=== PATIENT | female | born 1940 | race Caucasian/White ===

== ENCOUNTER 2019-09-05 12:12 | Inpatient (IN) | payer MEDICARE, BC ==
[2019-09-05] MEDS: SODIUM CHLORIDE 0.9% 1,000 ML IV STA ×2 (12:33→18:11)
--- NOTE | 2019-09-05 12:33 | ED ---
General Adult HPI - General Chief complaint: Arrhythmia/Palpitations Stated complaint: Bradycardia Time Seen by Provider: 09/05/19 12:16 Source: patient, EMS, RN notes reviewed Mode of arrival: EMS Limitations: no limitations - History of Present Illness Initial comments: Patient is a pleasant 78-year-old female presenting to the emergency department with fatigue and concerns regarding blood pressure. Patient states her blood pressure has been intermittently low over the past couple of days. Patient states that is been anywhere from the 40s to the 80s. Patient is unclear what her heart rate was. Patient states usually her blood pressure is normal. Patient has been generally fatigued. Patient has been sleeping more than normal. No chest pain. Patient has some discomfort of her upper back however is unclear if this is chronic or not. No dyspnea. No isolated area of weakness or confusion. Patient is on calcium channel gm as well as beta gm. - Related Data Allergies Allergy/AdvReac Type Severity Reaction Status Date / Time No Known Allergies Allergy Verified 09/05/19 12:26 Review of Systems ROS Statement: Those systems with pertinent positive or pertinent negative responses have been documented in the HPI. ROS Other: All systems not noted in ROS Statement are negative. Constitutional: Denies: fever Eyes: Denies: eye pain ENT: Denies: ear pain Respiratory: Denies: cough, dyspnea Cardiovascular: Denies: chest pain Endocrine: Reports: fatigue Gastrointestinal: Denies: abdominal pain Genitourinary: Denies: dysuria Musculoskeletal: Reports: as per HPI Skin: Denies: rash Neurological: Denies: headache Past Medical History Past Medical History: Heart Failure, Diabetes Mellitus, GERD/Reflux, Hyperlipidemia, Hypertension Additional Past Medical History / Comment(s): neuropathy,parkinsons History of Any Multi-Drug Resistant Organisms: None Reported Past Surgical History: Cholecystectomy Past Psychological History: Depression Smoking Status: Never smoker Past Alcohol Use History: None Reported Past Drug Use History: None Reported General Exam Limitations: no limitations General appearance: alert, in no apparent distress Head exam: Present: normocephalic Eye exam: Present: normal appearance Neck exam: Present: normal inspection Respiratory exam: Present: normal lung sounds bilaterally Cardiovascular Exam: Present: bradycardia Expanded Peripheral pulses: 2+: Radial (R), Radial (L), Dorsalis Pedis (R), Dorsalis Pedis (L) GI/Abdominal exam: Present: soft. Absent: tenderness Extremities exam: Present: normal inspection Back exam: Present: normal inspection Neurological exam: Present: alert, oriented X3. Absent: motor sensory deficit Psychiatric exam: Present: normal affect, normal mood Skin exam: Present: normal color Course Vital Signs 09/05/19 09/05/19 09/05/19 12:13 12:38 12:46 Temperature 98.3 F Pulse Rate 36 L 32 L 32 L Respiratory 18 20 18 Rate Blood Pressure 98/75 77/51 72/28 O2 Sat by Pulse 96 99 98 Oximetry 09/05/19 09/05/19 09/05/19 12:48 12:51 12:57 Temperature Pulse Rate 45 L 33 L 32 L Respiratory 18 18 18 Rate Blood Pressure 66/52 76/39 70/30 O2 Sat by Pulse 98 97 97 Oximetry 09/05/19 09/05/19 09/05/19 13:01 13:09 13:12 Temperature Pulse Rate 37 L 32 L 39 L Respiratory 20 18 Rate Blood Pressure 72/40 85/48 O2 Sat by Pulse 97 97 Oximetry 09/05/19 09/05/19 09/05/19 13:15 13:20 13:23 Temperature 97.5 F L Pulse Rate 68 38 L 47 L Respiratory 17 Rate Blood Pressure 116/96 101/64 O2 Sat by Pulse 99 Oximetry 09/05/19 09/05/19 09/05/19 13:32 13:40 13:43 Temperature Pulse Rate 63 84 Respiratory 18 18 Rate Blood Pressure 83/49 96/57 123/74 O2 Sat by Pulse 99 99 Oximetry 09/05/19 13:59 Temperature Pulse Rate 84 Respiratory 18 Rate Blood Pressure 126/68 O2 Sat by Pulse 99 Oximetry - Reevaluation(s) Reevaluation #1: 09/05/19 13:00 Case was discussed with Dr. Abdalla who does recommend adding calcium and glucagon. He states also consider dopamine or norepinephrine. 09/05/19 14:24 Patient reevaluated multiple times. Patient blood pressure and heart rate are significantly improved. Case also discussed with Dr. Figueroa, who will admit co humberto for hospital call. He does request repeat Bmp EKG Findings - EKG Comments: EKG Findings:: Sinus bradycardia 34. TX 202. QRS 78. QT 486. QTc 365. Left axis. Inferior Q waves. No acute ST change. EKG #2 shows sinus bradycardia 35. TX 184. QRS 78. QT 44. QTC 369. Left axis. Inferior Q waves. No acute ST change Medical Decision Making - Lab Data Result diagrams: 09/05/19 12:29 09/05/19 12: Lab Results 09/05/19 09/05/19 09/05/19 Range/Units 12:29 12: 12:29 WBC 6.8 (3.8-10.6) k/uL RBC 4.29 (3.80-5.40) m/uL Hgb 11.5 (11.4-16.0) gm/dL Hct 37.4 (34.0-46.0) % MCV 87.0 (80.0-100.0) fL MCH 26.7 (25.0-35.0) pg MCHC 30.7 L (31.0-37.0) g/dL RDW 15.9 H (11.5-15.5) % Plt Count 205 (150-450) k/uL Neutrophils % 68 % Lymphocytes % 20 % Monocytes % 5 % Eosinophils % 4 % Basophils % 1 % Neutrophils # 4.6 (1.3-7.7) k/uL Lymphocytes # 1.4 (1.0-4.8) k/uL Monocytes # 0.3 (0-1.0) k/uL Eosinophils # 0.3 (0-0.7) k/uL Basophils # 0.1 (0-0.2) k/uL Hypochromasia Marked PT 9.6 (9.0-12.0) sec INR 0.9 (<1.2) APTT 21.6 L (22.0-30.0) sec Sodium 131 L (137-145) mmol/L Potassium 7.3 H* (3.5-5.1) mmol/L Chloride 106 (98-107) mmol/L Carbon Dioxide 17 L (22-30) mmol/L Anion Gap 8 mmol/L BUN 74 H (7-17) mg/dL Creatinine 1.78 H (0.52-1.04) mg/dL Est GFR (CKD-EPI)AfAm 31 (>60 ml/min/1.73 sqM) Est GFR (CKD-EPI)NonAf 27 (>60 ml/min/1.73 sqM) Glucose 240 H (74-99) mg/dL Calcium 8.6 (8.4-10.2) mg/dL Magnesium 2.3 (1.6-2.3) mg/dL Total Bilirubin 0.6 (0.2-1.3) mg/dL AST 28 (14-36) U/L ALT <6 (4-34) U/L Alkaline Phosphatase 76 (38-126) U/L Troponin I (0.000-0.034) ng/mL Total Protein 6.7 (6.3-8.2) g/dL Albumin 3.4 L (3.5-5.0) g/dL TSH 3.500 (0.465-4.680) mIU/L Free T4 0.81 (0.78-2.19) ng/dL Free T3 pg/mL 3.6 (2.8-5.3) pg/ml Coronavirus (PCR) (Not Detectd) 09/05/19 09/05/19 Range/Units 12:29 12:33 WBC (3.8-10.6) k/uL RBC (3.80-5.40) m/uL Hgb (11.4-16.0) gm/dL Hct (34.0-46.0) % MCV (80.0-100.0) fL MCH (25.0-35.0) pg MCHC (31.0-37.0) g/dL RDW (11.5-15.5) % Plt Count (150-450) k/uL Neutrophils % % Lymphocytes % % Monocytes % % Eosinophils % % Basophils % % Neutrophils # (1.3-7.7) k/uL Lymphocytes # (1.0-4.8) k/uL Monocytes # (0-1.0) k/uL Eosinophils # (0-0.7) k/uL Basophils # (0-0.2) k/uL Hypochromasia PT (9.0-12.0) sec INR (<1.2) APTT (22.0-30.0) sec Sodium (137-145) mmol/L Potassium (3.5-5.1) mmol/L Chloride (98-107) mmol/L Carbon Dioxide (22-30) mmol/L Anion Gap mmol/L BUN (7-17) mg/dL Creatinine (0.52-1.04) mg/dL Est GFR (CKD-EPI)AfAm (>60 ml/min/1.73 sqM) Est GFR (CKD-EPI)NonAf (>60 ml/min/1.73 sqM) Glucose (74-99) mg/dL Calcium (8.4-10.2) mg/dL Magnesium (1.6-2.3) mg/dL Total Bilirubin (0.2-1.3) mg/dL AST (14-36) U/L ALT (4-34) U/L Alkaline Phosphatase (38-126) U/L Troponin I <0.012 (0.000-0.034) ng/mL Total Protein (6.3-8.2) g/dL Albumin (3.5-5.0) g/dL TSH (0.465-4.680) mIU/L Free T4 (0.78-2.19) ng/dL Free T3 pg/mL (2.8-5.3) pg/ml Coronavirus (PCR) Not Detected (Not Detectd) - Radiology Data Radiology results: image reviewed (Chest x-ray shows limited study, possible patchy bilateral infiltrates or CHF) Critical Care Time Critical Care Time: Yes Total Critical Care Time: 35 Disposition Clinical Impression: Bradycardia, Hyperkalemia, Hypotension, Acute renal failure (ARF) Disposition: ADMITTED IP TO THIS [facility] Condition: Serious Is patient prescribed a controlled substance at d/c from ED?: No Referrals: Teofilo Maharaj MD [Primary Care Provider] - 1-2 days Decision Time: 14:27
[2019-09-05] MEDS ORDERED: ATROPINE SULFATE 0.1 MG/ML 10ML SYRINGE IV STA ×2 (12:41→12:52)
[2019-09-05] MEDS ORDERED: SODIUM CHLORIDE 0.9% 500 ML 500 ML IV STA (12:42)
[2019-09-05 12:50] LABS: ALT <6 U/L (4-34); AST 28 U/L (14-36); African American GFR (CKD) 31 (>60 ml/min/1.73 sqM); Albumin 3.4 g/dL (3.5-5.0); Alkaline Phosphatase 76 U/L (38-126); Anion Gap 8 mmol/L; Blood Urea Nitrogen 74 mg/dL (7-17); Calcium 8.6 mg/dL (8.4-10.2); Carbon Dioxide 17 mmol/L (22-30); Chloride 106 mmol/L (98-107); Glucose 240 mg/dL (74-99); Magnesium 2.3 mg/dL (1.6-2.3); Non-African American GFR(CKD) 27 (>60 ml/min/1.73 sqM); Sodium 131 mmol/L (137-145); Total Bilirubin 0.6 mg/dL (0.2-1.3); Total Protein 6.7 g/dL (6.3-8.2)
[2019-09-05 12:54] LABS: Basophils # (A) 0.1 k/uL (0-0.2); Basophils % (A) 1 %; Eosinophils # (A) 0.3 k/uL (0-0.7); Eosinophils % (A) 4 %; HCT 37.4 % (34.0-46.0); HGB 11.5 gm/dL (11.4-16.0); Hypochromasia Marked; Lymphocytes # (A) 1.4 k/uL (1.0-4.8); Lymphocytes % (A) 20 %; MCH 26.7 pg (25.0-35.0); MCHC 30.7 g/dL (31.0-37.0); Mean Platelet Volume 7.2; Monocytes # (A) 0.3 k/uL (0-1.0); Monocytes % (A) 5 %; Neutrophils # (A) 4.6 k/uL (1.3-7.7); Neutrophils % (A) 68 %; Platelet Count 205 k/uL (150-450); RBC 4.29 m/uL (3.80-5.40); RDW 15.9 % (11.5-15.5); WBC 6.8 k/uL (3.8-10.6)
[2019-09-05 12:57] LABS: INR 0.9 (<1.2); Prothrombin Time 9.6 sec (9.0-12.0)
[2019-09-05 12:58] LABS: Partial Thromboplastin Time 21.6 sec (22.0-30.0)
[2019-09-05] MEDS ORDERED: CALCIUM CHLORIDE 100 MG/ML 10 ML SYRINGE IVP STA (12:59)
[2019-09-05] MEDS ORDERED: GLUCAGON 1 MG/ML VIAL IVP STA (12:59)
[2019-09-05 13:00] LABS: Potassium 7.3 mmol/L (3.5-5.1)
[2019-09-05] MEDS ORDERED: SODIUM BICARB 8.4% 50 ML SYR (1 MEQ/ML) IV ONE (13:01)
[2019-09-05] MEDS ORDERED: INSULIN REGULAR 100 UNIT/ML VIAL IV ONE (13:01)
[2019-09-05] MEDS ORDERED: ALBUTEROL NEB (CONC) 2.5 MG/0.5 ML INHALATION ONE (13:01)
[2019-09-05] MEDS ORDERED: DEXTROSE 50% SYRINGE 50 ML IVP ONE (13:01)
[2019-09-05] MEDS ORDERED: SODIUM POLYSTYRENE SULFONATE 15 GM/60 ML BOTTLE PO ONE (13:01)
[2019-09-05 13:07] LABS: T4, Free (Free Thyroxine) 0.81 ng/dL (0.78-2.19)
[2019-09-05] MEDS ORDERED: SODIUM CHLORIDE 0.9% 1,000 ML IV STA (13:21)
--- NOTE | 2019-09-05 13:51 | XR ---
EXAMINATION TYPE: XR chest 1V portable DATE OF EXAM: 09/05/2019 HISTORY: bradycardia hypotensive. REFERENCE: NONE. FINDINGS: The heart is mildly enlarged. There is patchy, bilateral infiltrates. There is blunting of the left CP angle and I cannot exclude a small effusion. There is mild vascular congestion. There is subtle interstitial change and I could not exclude some degree of pulmonary edema. IMPRESSION: SUBOPTIMAL EXAMINATION DEMONSTRATING PATCHY, BILATERAL INFILTRATES WELL SUBTLE CHANGES OF TYREE ESTIVE HEART FAILURE.
[2019-09-05] MEDS ORDERED: NALOXONE 0.4 MG/ML 1 ML VIAL IV PRN (14:21)
[2019-09-05 15:27] LABS: Calcium 9.4 mg/dL (8.4-10.2); Potassium 5.7 mmol/L (3.5-5.1)
[2019-09-05] MEDS ORDERED: BENZOCAINE/MENTHOL LOZENG 1 EACH LOZENGE MUCOUS MEM STA (15:48)
[2019-09-05] MEDS ORDERED: ONDANSETRON 4 MG/2 ML VIAL IVP PRN (16:40)
[2019-09-05] MEDS ORDERED: SODIUM CHLORIDE 0.9% 500 ML 500 ML IV ONE ×2 (16:40→19:54)
--- NOTE | 2019-09-05 16:40 | P.HPIM ---
History of Present Illness H&P Date: 09/05/19 Chief Complaint: Hypotension Patient is a 78-year-old female with a past medical history of high blood pressure, fibromyalgia, neuropathy, and parkinsonian syndrome who initially was brought into the ER via EMS secondary to low blood pressures. She received 1 dose of atropine via EMS, 2 doses of atropine in the ER secondary to bradycardia with hypotension, and a dose of glucagon. Initial laboratory analysis showed an elevated potassium level at 7.3 and acute kidney injury. She received Kayexalate, insulin, glucose, bicarb, and potassium. Repeat labs showed a potassium of 5.7. Her hypotension improved and she was admitted for further monitoring. Patient seen and examined at bedside. She is very confused. I attempted to reach her daughter who is numbers in the chart with no answer. She reports that her blood pressure was low today down to the 40s at home and they were unable to get it out. She is unsure which of her medications are new. She is unable to tell me what she takes other than the pill bottles that are at bedside. She denies any nausea, vomiting, diarrhea, constipation, or dysuria. She denies any chest pain or shortness of breath. She denies any lightheadedness, dizziness, or presyncope. She is just able to tell me that she feels "awful". Review of Systems Pertinent positives and negatives as discussed in HPI, a complete review of systems was performed and all other systems are negative. Past Medical History Past Medical History: Heart Failure, Diabetes Mellitus, GERD/Reflux, Hyperlipidemia, Hypertension Additional Past Medical History / Comment(s): neuropathy,parkinsons, fibromyalgia, osteoarthritis History of Any Multi-Drug Resistant Organisms: None Reported Past Surgical History: Cholecystectomy Past Psychological History: Depression Smoking Status: Never smoker Past Alcohol Use History: None Reported Past Drug Use History: None Reported Additional History: Lives with her - Past Family History Mother Family Medical History: Unable to Obtain (Due to altered mentation) Medications and Allergies Home Medications Medication Instructions Recorded Confirmed Type Canagliflozin [Invokana] 100 mg PO DAILY 09/05/19 09/05/19 History Carbidopa-Levodopa 25-100 mg 1 tab PO TID 09/05/19 09/05/19 History [Sinemet 25-100] Furosemide [Lasix] 20 mg PO BID 09/05/19 09/05/19 History Gabapentin [Neurontin] 800 mg PO TID 09/05/19 09/05/19 History Insulin Detemir [Levemir Flextouch] See Protocol SQ BID 09/05/19 09/05/19 History Isosorbide Dinitrate 30 mg PO DAILY 09/05/19 09/05/19 History Lisinopril [Zestril] 10 mg PO BID 09/05/19 09/05/19 History Magnesium 500 mg PO DAILY 09/05/19 09/05/19 History Meloxicam 7.5 mg PO BID PRN 09/05/19 09/05/19 History Metoprolol Succinate [Toprol XL] 50 mg PO DAILY 09/05/19 09/05/19 History NIFEdipine [Procardia XL] 60 mg PO DAILY 09/05/19 09/05/19 History Omeprazole 20 mg PO DAILY 09/05/19 09/05/19 History Oxybutynin Chloride 5 mg PO BID 09/05/19 09/05/19 History Saliva Stimulant Agents Comb.3 2 spray MUCOUS MEM Q4H PRN 09/05/19 09/05/19 His tory [Biotene Moisturizing Mouth] Sertraline [Zoloft] 50 mg PO DAILY 09/05/19 09/05/19 History Simvastatin [Zocor] 20 mg PO DAILY 09/05/19 09/05/19 History Spironolactone 25 mg PO DAILY 09/05/19 09/05/19 History cloNIDine HCL [Catapres] 0.2 mg PO BID 09/05/19 09/05/19 History hydrALAZINE HCL 50 mg PO TID 09/05/19 09/05/19 History Allergies Allergy/AdvReac Type Severity Reaction Status Date / Time No Known Allergies Allergy Verified 09/05/19 15:26 Physical Exam Osteopathic Statement: *. No significant issues noted on an osteopathic structural exam other than those noted in the History and Physical/Consult. Vitals: Vital Signs Temp Pulse Resp BP Pulse Ox 09/05/19 15:00 97.5 F L 73 18 111/54 96 09/05/19 13:59 84 18 126/68 99 09/05/19 13:43 84 18 123/74 99 09/05/19 13:40 96/57 09/05/19 13:32 63 18 83/49 99 09/05/19 13:23 47 L 09/05/19 13:20 97.5 F L 38 L 17 101/64 99 09/05/19 13:15 68 116/96 09/05/19 13:12 39 L 09/05/19 13:09 32 L 18 85/48 97 09/05/19 13:01 37 L 20 72/40 97 09/05/19 12:57 32 L 18 70/30 97 09/05/19 12:51 33 L 18 76/39 97 09/05/19 12:48 45 L 18 66/52 98 09/05/19 12:46 32 L 18 72/28 98 09/05/19 12:38 32 L 20 77/51 99 09/05/19 12:13 98.3 F 36 L 18 98/75 96 Intake and Output 09/05/19 09/05/19 09/05/19 06:59 14:59 22:59 Other: Weight 77.111 kg General: Ill-appearing, moderate distress, appears at stated age, Derm: no unusual rashes/lesions no unusual ecchymoses, warm, dry Head: atraumatic, normocephalic, symmetric Eyes: EOMI, no lid lag, anicteric sclera, pupils equal round reactive to light ENT: Nose and ears atraumatic, no thrush, no pharyngeal erythema Neck: No thyromegaly, no cervical lymphadenopathy, trachea midline, supple Mouth: no lip lesion, mucus membranes dry, poor dentition Cardiovascular: S1S2 reg, no murmur, positive posterior tibial pulse bilateral, no edema, capillary refill less than 2 seconds Lungs: Increased breath sounds bilateral, no rhonchi, no rales , no accessory muscle use Abdominal: soft, nontender to palpation, no guarding, no appreciable organomegaly, normal bowel sounds Ext: no gross muscle atrophy, muscle strength 5 out of 5 in all 4 extremities grossly, no contractures, Neuro: CN II-XI grossly intact, light touch intact all 4 extremities, nose poor, Psych: Alert, into to self but not situation, flat affect Results CBC & Chem 7: 09/05/19 12:29 09/05/19 14:50 Labs: Abnormal Lab Results - Last 24 Hours (Table) 09/05/19 09/05/19 09/05/19 Range/Units 12:29 12:29 12:29 MCHC 30.7 L (31.0-37.0) g/dL RDW 15.9 H (11.5-15.5) % APTT 21.6 L (22.0-30.0) sec Sodium 131 L (137-145) mmol/L Potassium 7.3 H* (3.5-5.1) mmol/L Chloride (98-107) mmol/L Carbon Dioxide 17 L (22-30) mmol/L BUN 74 H (7-17) mg/dL Creatinine 1.78 H (0.52-1.04) mg/dL Glucose 240 H (74-99) mg/dL Albumin 3.4 L (3.5-5.0) g/dL 09/05/19 Range/Units 14:50 MCHC (31.0-37.0) g/dL RDW (11.5-15.5) % APTT (22.0-30.0) sec Sodium 134 L (137-145) mmol/L Potassium 5.7 H (3.5-5.1) mmol/L Chloride 108 H (98-107) mmol/L Carbon Dioxide 17 L (22-30) mmol/L BUN 69 H (7-17) mg/dL Creatinine 1.82 H (0.52-1.04) mg/dL Glucose 283 H (74-99) mg/dL Albumin (3.5-5.0) g/dL Chest x-ray: report reviewed Thrombosis Risk Factor Assmnt - DVT/VTE Prophylaxis DVT/VTE Prophylaxis: Pharmacologic Prophylaxis ordered Assessment and Plan Assessment: Symptomatic bradycardia - Status post atropine and glucagon -Telemetry -Echocardiogram -Cardiology consult -Hold metoprolol, Procardia, and Catapres Acute kidney injury with hyperkalemia and non-anion gap metabolic acidosis -Unknown baseline creatinine -Hold lisinopril, Aldactone, Invokana,, meloxicam -Gentle IV fluids -Repeat creatinine in a.m. -Repeat potassium in 4 hours -Status post insulin, glucose, bicarb, calcium, and Kayexalate Congestive heart failure, unknown type -Appears to be dehydrated at this point in time -Hold diuretics, lisinopril, and metoprolol -careful fluid management -Echo in a.m. Diabetes mellitus type 2 -Hold invokana, hold levemir - A1C pending - SSI - Follow BS Hyponatremia -Suspect secondary dehydration -Follow sodium levels -Hold diuretics Hypotension likely secondary to medication use -Hold all antihypertensive medications -IV fluids -Follow blood pressures Morbid obesity -BMI 33.2 -Structured outpatient weight loss Fibromyalgia -Dover as needed -Hold Mobic -Supportive care Parkinson's disease -Fall precautions -Carbidopa- levodopa Chronic: Dyslipidemia GERD Neuropathy Urinary frequency The patient is admitted with an anticipated greater than 2 midnight stay for evaluation of symptomatic bradycardia. Surrogate decision-maker: CODE STATUS: Default, attempted to call daughter was listed on chart twice, 's number not available DVT prophylaxis: Heparin Discussed with: Patient, nursing, ED physician Anticipated discharge date: 1-[address]: home A total of 75 minutes was spent on the care of this complex patient more than 50% of the time was spent in counseling and care coordination.
[2019-09-05 17:55] LABS: Glucose,Whole Blood 227 mg/dL (75-99)
[2019-09-05] MEDS: INSULIN ASPART (NovoLOG) 100 UNIT/ML VIAL SQ SCH (18:10)
[2019-09-05] MEDS: SODIUM CHLORIDE 0.9% 1,000 ML IV SCH (18:15)
[2019-09-05 19:21] LABS: Calcium 9.5 mg/dL (8.4-10.2)
[2019-09-05 19:26] LABS: Potassium 6.1 mmol/L (3.5-5.1)
[2019-09-05] MEDS ORDERED: SODIUM BICARB 8.4% 50 ML SYR (1 MEQ/ML) IV STA (20:05)
[2019-09-05] MEDS ORDERED: FUROSEMIDE 10 MG/ML 4 ML VIAL IV STA (20:10)
[2019-09-05] MEDS: MELATONIN 3 MG TABLET PO PRN (20:59)
[2019-09-05] MEDS: HYDROcodone/APAP 5-325MG 1 EACH TAB PO PRN (20:59)
[2019-09-05] MEDS ORDERED: CALCIUM GLUCONATE 1 GM in SODIUM CHLORIDE 0.9% 100 ML IVPB ONE (21:00)
[2019-09-05 21:14] LABS: Glucose,Whole Blood 181 mg/dL (75-99)
[2019-09-05] MEDS: HEPARIN SODIUM,PORCINE 5,000 UNIT/ML 1 ML VIAL SQ SCH (23:14)
[2019-09-06 00:42] LABS: Calcium 9.6 mg/dL (8.4-10.2); Potassium 5.8 mmol/L (3.5-5.1)
[2019-09-06 02:00] LABS: Glucose,Whole Blood 190 mg/dL (75-99)
[2019-09-06] MEDS: HYDROcodone/APAP 5-325MG 1 EACH TAB PO PRN ×3 (02:15→20:07)
[2019-09-06] MEDS: SODIUM CHLORIDE 0.9% 1,000 ML IV SCH ×2 (03:55→16:16)
[2019-09-06 06:26] LABS: Glucose,Whole Blood 170 mg/dL (75-99)
[2019-09-06 07:04] LABS: Albumin 3.3 g/dL (3.5-5.0); Calcium 9.4 mg/dL (8.4-10.2); Potassium 5.3 mmol/L (3.5-5.1); Total Bilirubin 0.3 mg/dL (0.2-1.3); Total Protein 6.3 g/dL (6.3-8.2)
[2019-09-06] MEDS: INSULIN ASPART (NovoLOG) 100 UNIT/ML VIAL SQ SCH ×3 (07:05→17:36)
[2019-09-06] MEDS: PANTOPRAZOLE 40 MG TABLET PO SCH (10:49)
[2019-09-06] MEDS: HEPARIN SODIUM,PORCINE 5,000 UNIT/ML 1 ML VIAL SQ SCH ×3 (10:49→23:33)
[2019-09-06] MEDS: ATORVASTATIN 10 MG TAB PO SCH (10:49)
[2019-09-06 11:40] LABS: Glucose,Whole Blood 255 mg/dL (75-99)
--- NOTE | 2019-09-06 11:40 | CONS ---
CONSULTATION REASON FOR CONSULT: Renal failure. HISTORY OF PRESENT ILLNESS: Patient is a 78-year-old female who was admitted to the hospital with complaints of low blood pressure. The patient stated her blood pressure was running very low, and she was unable to have it go up. Apparently, it was as low as 60s and 40s according to the patient. She denies any previous history of kidney diseases. The patient was noted to have a serum creatinine of 1.7, which peaked to 1.8 yesterday. The patient was maintained on Naprosyn at home along with NITO inhibitors. She did have decreased oral intake and nausea. No obvious diarrhea per patient. PAST MEDICAL HISTORY: Type 2 diabetes, gastroesophageal reflux disease, hyperlipidemia, hypertension, history of CHF, neuropathy, Parkinson's, fibromyalgia, osteoarthritis. PAST SURGICAL HISTORY: Cholecystectomy. SOCIAL HISTORY: Negative for smoking, drug abuse or alcohol abuse. MEDICATIONS: Medications at home prior to admission included Invokana, Sinemet, Lasix, Neurontin, Zestril, magnesium, meloxicam, Toprol, Procardia, omeprazole, Zoloft, Zocor, spironolactone, clonidine, hydralazine. ALLERGIES: None. REVIEW OF SYSTEMS: As per HPI. Other systems negative. EXAMINATION: Patient is comfortable, awake. She is not in any acute distress. Blood pressure this morning 125/60, heart rate 51 per minute. She is afebrile. Examination of the heart S1, S2. Examination of lungs decreased breath sounds at bases. ABDOMEN: Soft, nontender. Examination of lower extremities shows no evidence of edema. ADJ[employer]CT [employer]ORY [employer]CTOR exam grossly intact. LAB: Show sodium 136, potassium 5.3, chloride 104, CO2 is 22, BUN 61, creatinine 1.63, albumin 3.3 mg/dL. ASSESSMENT: 1. Acute kidney injury associated with hypotension, use of NSAIDs as well as NITO inhibitors currently slowly improving. Patient has good urine output. Continue with the IV fluids for now and continue to hold off on the NITO inhibitors and patient is advised to avoid use of any NSAIDs. 2. Hyperkalemia on admission serum potassium was as high as 7.3, currently improved, down to 5.3. Etiology is acute kidney injury and use of NSAIDs along with NITO inhibitors prior to admission. 3. Hypotension associated with hypovolemia as well as antihypertensive medications, currently improved. 4. History of hypertension, blood pressure currently low. 5. Bradycardia, associated with hyperkalemia as well as medications, currently improved off metoprolol, clonidine, status post atropine and glucagon. 6. Hyponatremia, mainly hypovolemic, currently improved. 7. History of Parkinson disease. PLAN: Continue IV fluids. Repeat labs in a.m. Patient is advised to avoid use of any nonsteroidal anti-inflammatory agents. Check urinalysis and check ultrasound of the kidneys. Thank you for this consultation. We will continue to follow the patient with you during her hospitalization. CHERY / JASONN: [id number] /
[2019-09-06] MEDS: GABAPENTIN 100 MG CAP PO SCH ×2 (12:24→20:08)
[2019-09-06] MEDS: CARBIDOPA-LEVODOPA 25-100 MG 1 EACH TAB PO SCH ×3 (12:24→20:11)
--- NOTE | 2019-09-06 13:07 | US ---
EXAMINATION TYPE: US kidneys/renal and bladder DATE OF EXAM: 09/06/2019 COMPARISON: NONE CLINICAL HISTORY: rf. EXAM MEASUREMENTS: Right Kidney: 9.3 x 4.9 x 4.2 cm Left Kidney: 8.2 x 5.1 x 4.0cm Right Kidney: hypoechoic area at renal pelvis, possible pyonephrosis Left Kidney: Partially obscured by overlying bowel gas, measures small Bladder: wnl There is mild prominence of the right renal pelvis without evidence of hydronephrosis. IMPRESSION: 1. LIMITED EXAMINATION. 2. NO EVIDENCE OF HYDRONEPHROSIS AT THIS TIME.
[2019-09-06 13:17] LABS: Appearance,Urine Cloudy (Clear); Bacteria,Urine Rare /hpf; Bilirubin,Urine Negative (Negative); Blood,Urine Negative (Negative); Color,Urine Light Yellow; Glucose,Urine (UA) 4+ (Negative); Ketones,Urine Negative (Negative); Leukocyte Esterase,Urine Large (Negative); Nitrite,Urine Negative (Negative); Protein,Urine Negative (Negative); RBC,Urine <1 /hpf (0-5); Squamous Epithelial Cell,Urine <1 /hpf (0-4); Urobilinogen,Urine <2.0 mg/dL (<2.0); WBC,Urine 135 /hpf (0-5)
--- NOTE | 2019-09-06 14:39 | P.CRDCN ---
History of Present Illness Consult date: 09/06/19 History of present illness: This is Dr. HOGAN dictating a consult note on this patient Impression: Severe Sinus bradycardia, severe, on beta blockers and multiple other antihypertensive medications including Catapres hydralazine spironolactone and Lasix lisinopril isosorbide Improvement after treatment of hyperkalemia Plan: Watch blood pressure and resume antihypertensive therap Nifedipine will not cause bradycardia Hold spironolactone Will start amlodipine 10 mg by mouth daily once her blood pressure starts to increase Blood pressure 131/46 and 134/71 B watch this and if it continues to creep upwards beyond 140/85 mmHg, low dose amlodipine will be added Further recommendations thereafter History of present illness: Coronary Dr. Horner in the ER stating that there is a lady with severe sinus bradycardia on calcium channel blockers andHowever it also turns out she had hyperkalemia with potassium 7.8. She initially presented to the emergency room with fatigue and concerns about her blood pressure. Her blood pressure had been low for the last few days she was also very sleepy more than usual. She denied any fever She has a history of diabetes type 2 dyslipidemia hypertension She is a nonsmoker Her initial blood pressures ranged between 60-100 systolic mmHg pulse was in the 30s. She had no issues once a year to atropine Ordering that I recommended glucagon and calcium and low dose dopamine, norepinephrine Treatment of hyperkalemia with insulin and calcium and dextrose and bicarbonate Review of systems No fever chills or rigors No cough phlegm or expectoration No nausea vomiting or diarrhea No hematuria dysuria No muscular skeletal complaints No neurologic complaints No skin lesions On examination Vitals afebrile 97.5F pulse in the 70s. Initially she was bradycardic, sinus bradycardia Normal respirations Blood pressure 114/96 Systolic murmur over the [place] Sounds are reduced bilat Review of data White count 6.8, hemoglobin 11.5 Sodium 131 and potassium 7.3 BUN 74 creatinine 1.78 Glucose 240 TSH 3.5 Troponin normal Coronavirus PCR nondetectable Past Medical History Past Medical History: Heart Failure, Diabetes Mellitus, GERD/Reflux, Hyperlipidemia, Hypertension Additional Past Medical History / Comment(s): neuropathy,parkinsons, fibromy algia, osteoarthritis History of Any Multi-Drug Resistant Organisms: None Reported Past Surgical History: Cholecystectomy Past Psychological History: Depression Smoking Status: Never smoker Past Alcohol Use History: None Reported Past Drug Use History: None Reported - Past Family History Mother Family Medical History: Unable to Obtain Medications and Allergies Home Medications Medication Instructions Recorded Confirmed Type Canagliflozin [Invokana] 100 mg PO DAILY 09/05/19 09/05/19 History Carbidopa-Levodopa 25-100 mg 1 tab PO TID 09/05/19 09/05/19 History [Sinemet 25-100] Furosemide [Lasix] 20 mg PO BID 09/05/19 09/05/19 History Gabapentin [Neurontin] 800 mg PO TID 09/05/19 09/05/19 History Insulin Detemir [Levemir Flextouch] See Protocol SQ BID 09/05/19 09/05/19 History Isosorbide Dinitrate 30 mg PO DAILY 09/05/19 09/05/19 History Lisinopril [Zestril] 10 mg PO BID 09/05/19 09/05/19 History Magnesium 500 mg PO DAILY 09/05/19 09/05/19 History Meloxicam 7.5 mg PO BID PRN 09/05/19 09/05/19 History Metoprolol Succinate [Toprol XL] 50 mg PO DAILY 09/05/19 09/05/19 History NIFEdipine [Procardia XL] 60 mg PO DAILY 09/05/19 09/05/19 History Omeprazole 20 mg PO DAILY 09/05/19 09/05/19 History Oxybutynin Chloride 5 mg PO BID 09/05/19 09/05/19 History Saliva Stimulant Agents Comb.3 2 spray MUCOUS MEM Q4H PRN 09/05/19 09/05/19 History [Biotene Moisturizing Mouth] Sertraline [Zoloft] 50 mg PO DAILY 09/05/19 09/05/19 History Simvastatin [Zocor] 20 mg PO DAILY 09/05/19 09/05/19 History Spironolactone 25 mg PO DAILY 09/05/19 09/05/19 History cloNIDine HCL [Catapres] 0.2 mg PO BID 09/05/19 09/05/19 History hydrALAZINE HCL 50 mg PO TID 09/05/19 09/05/19 History Allergies Allergy/AdvReac Type Severity Reaction Status Date / Time No Known Allergies Allergy Verified 09/05/19 15:26 Physical Exam Vitals: Vital Signs Temp Pulse Pulse Resp BP BP Pulse Ox 09/05/19 17:30 64 18 95/47 100 09/05/19 16:38 60 18 114/96 98 09/05/19 15:00 97.5 F L 73 18 111/54 96 09/05/19 13:59 84 18 126/68 99 09/05/19 13:43 84 18 123/74 99 09/05/19 13:40 96/57 09/05/19 13:32 63 18 83/49 99 09/05/19 13:23 47 L 09/05/19 13:20 97.5 F L 38 L 17 101/64 99 09/05/19 13:15 68 116/96 09/05/19 13:12 39 L 09/05/19 13:09 32 L 18 85/48 97 09/05/19 13:01 37 L 20 72/40 97 09/05/19 12:57 32 L 18 70/30 97 09/05/19 12:51 33 L 18 76/39 97 09/05/19 12:48 45 L 18 66/52 98 09/05/19 12:46 32 L 18 72/28 98 09/05/19 12:38 32 L 20 77/51 99 09/05/19 12:13 98.3 F 36 L 18 98/75 96 Intake and Output 09/05/19 09/05/19 09/05/19 06:59 14:59 22:59 Other: Weight 77.111 kg 77.111 kg Results 09/05/19 12:29 09/06/19 05:35 Cardiac Enzymes 09/05/19 09/05/19 Range/Units 12:29 12:29 AST 28 (14-36) U/L Troponin I <0.012 (0.000-0.034) ng/mL Coagulation 09/05/19 Range/Units 12:29 PT 9.6 (9.0-12.0) sec APTT 21.6 L (22.0-30.0) sec CBC 09/05/19 Range/Units 12:29 WBC 6.8 (3.8-10.6) k/uL RBC 4.29 (3.80-5.40) m/uL Hgb 11.5 (11.4-16.0) gm/dL Hct 37.4 (34.0-46.0) % Plt Count 205 (150-450) k/uL Comprehensive Metabolic Panel 09/05/19 09/05/19 Range/Units 12:29 14:50 Sodium 131 L 134 L (137-145) mmol/L Potassium 7.3 H* 5.7 H (3.5-5.1) mmol/L Chloride 106 108 H (98-107) mmol/L Carbon Dioxide 17 L 17 L (22-30) mmol/L BUN 74 H 69 H (7-17) mg/dL Creatinine 1.78 H 1.82 H (0.52-1.04) mg/dL Glucose 240 H 283 H (74-99) mg/dL Calcium 8.6 9.4 (8.4-10.2) mg/dL AST 28 (14-36) U/L ALT <6 (4-34) U/L Alkaline Phosphatase 76 (38-126) U/L Total Protein 6.7 (6.3-8.2) g/dL Albumin 3.4 L (3.5-5.0) g/dL Current Medications Generic Name Dose Route Start Last Admin Trade Name Freq PRN Reason Stop Dose Admin Acetaminophen 650 mg 09/05/19 16:40 Tylenol Tab PO Q6HR PRN Mild Pain or Fever > 100.5 Hydrocodone Bitart/Acetaminophen 1 each 09/05/19 16:40 [employer] 5-325 PO Q4HR PRN Moderate Pain Atorvastatin Calcium 10 mg 09/06/19 09:00 Lipitor PO DAILY DAFNE Heparin Sodium (Porcine) 5,000 unit 09/06/19 00:00 Heparin SQ Q8HR DAFNE Sodium Chloride 1,000 mls @ 50 mls/hr 09/05/19 12:29 09/05/19 18:11 Saline 0.9% IV 09/06/19 08:28 50 mls/hr .Q20H STA Administration Sodium Chloride 1,000 mls @ 130 mls/hr 09/05/19 13:21 09/05/19 13:31 Saline 0.9% IV 09/05/19 21:02 130 mls/hr .[id number] STA Administration Sodium Chloride 1,000 mls @ 75 mls/hr 09/05/19 14:30 09/05/19 18:15 Saline 0.9% IV 75 mls/hr .[id number] DAFNE Administration Insulin Aspart 0 unit 09/05/19 17:30 09/05/19 18:10 Novolog SQ 3 unit AC-TID DAFNE Administration Protocol Melatonin 3 mg 09/05/19 16:40 Melatonin PO HS PRN Insomnia Naloxone HCl 0.2 mg 09/05/19 14:21 Narcan IV Q2M PRN Opioid Reversal Ondansetron HCl 4 mg 09/05/19 16:40 Zofran IVP Q8HR PRN Nausea And Vomiting Pantoprazole Sodium 40 mg 09/06/19 09:00 Protonix PO DAILY DAFNE Intake and Output 09/05/19 09/05/19 09/05/19 06:59 14:59 22:59 Other: Weight 77.111 kg 77.111 kg Patient Weight 09/06/19 06:59 Weight 77.111 kg 09/05/19 12:29 09/05/19 14:50
[2019-09-06] MEDS: ACETAMINOPHEN TAB 325 MG TAB PO PRN ×2 (16:25→23:32)
[2019-09-06 17:08] LABS: Glucose,Whole Blood 148 mg/dL (75-99)
[2019-09-06] MEDS: BENZOCAINE/MENTHOL LOZENG 1 EACH LOZENGE MUCOUS MEM PRN (20:07)
[2019-09-06] MEDS: MELATONIN 3 MG TABLET PO PRN (20:08)
[2019-09-06 20:19] LABS: Glucose,Whole Blood 175 mg/dL (75-99)
--- NOTE | 2019-09-06 21:02 | P.PN ---
Subjective Progress Note Date: 09/06/19 (delayed charting seen at 1110) Principal diagnosis: low blood pressure Patient is a 78-year-old female with a past medical history of high blood pressure, fibromyalgia, neuropathy, and parkinsonian syndrome who initially was brought into the ER via EMS secondary to low blood pressures. She received 1 dose of atropine via EMS, 2 doses of atropine in the ER secondary to bradycardia with hypotension, and a dose of glucagon. Initial laboratory analysis showed an elevated potassium level at 7.3 and acute kidney injury. She received Kayexalate, insulin, glucose, bicarb, and potassium. Repeat labs showed a potassium of 5.7. Her hypotension improved and she was admitted for further monitoring. She continued to have some hyperkalemia and was given a dose of lasix and more bicarb and fluids. Her HR remained above 50. Patient seen and examined at bedside. She complains of pain all over, is asking for her Neurontin to be restarted. We discussed that she was in renal failure and had hyperkalemia when she came in her medications need to be adjusted. She states she wants to go home tomorrow. We discussed that she may not be ready to go home in a.m. Objective - Vital Signs Vital signs: Vital Signs Temp 97.8 F 09/06/19 16:30 Pulse 51 L 09/06/19 16:30 Resp 18 09/06/19 16:30 BP 164/76 09/06/19 16:30 Pulse Ox 95 09/06/19 16:59 Intake & Output 09/06/19 09/06/19 09/07/19 06:59 18:59 06:59 Intake Total 120 Output Total 1400 400 Balance -1400 -280 Weight 77.6 kg Intake: Oral 120 Output: Urine 1400 400 Other: Voiding Method Bedside Commode # Voids 1 1 - Exam General: Ill-appearing, no distress, appears at stated age, obese Derm: warm, dry Head: atraumatic, normocephalic, symmetric Eyes: EOMI, no lid lag, anicteric sclera Mouth: no lip lesion, mucus membranes moist Cardiovascular: S1S2 reg, no murmur, positive posterior tibial pulse bilateral, Lungs: Decreased breath sounds bilateral, no rhonchi, no rales , no accessory muscle use Abdominal: soft, nontender to palpation, no guarding, no appreciable organomegaly Ext: no gross muscle atrophy, 1+ edema, no contractures Neuro: CN II-XI grossly intact, no focal neuro deficits, lip smaking Psych: Alert, oriented, flat - Labs CBC & Chem 7: 09/05/19 12:29 09/06/19 05:35 Labs: Abnormal Lab Results - Last 24 Hours (Table) 09/05/19 09/06/19 09/06/19 Range/Units 21:13 00:08 01:58 Sodium 135 L (137-145) mmol/L Potassium 5.8 H (3.5-5.1) mmol/L Carbon Dioxide 21 L (22-30) mmol/L BUN 65 H (7-17) mg/dL Creatinine 1.73 H (0.52-1.04) mg/dL Glucose 192 H (74-99) mg/dL POC Glucose (mg/dL) 181 H 190 H (75-99) mg/dL Albumin (3.5-5.0) g/dL Urine Appearance (Clear) Urine Glucose (UA) (Negative) Ur Leukocyte Esterase (Negative) Urine WBC (0-5) /hpf Urine Bacteria (None) /hpf 09/06/19 09/06/19 09/06/19 Range/Units 05:35 06:24 11:28 Sodium 136 L (137-145) mmol/L Potassium 5.3 H (3.5-5.1) mmol/L Carbon Dioxide (22-30) mmol/L BUN 61 H (7-17) mg/dL Creatinine 1.63 H (0.52-1.04) mg/dL Glucose 162 H (74-99) mg/dL POC Glucose (mg/dL) 170 H 255 H (75-99) mg/dL Albumin 3.3 L (3.5-5.0) g/dL Urine Appearance (Clear) Urine Glucose (UA) (Negative) Ur Leukocyte Esterase (Negative) Urine WBC (0-5) /hpf Urine Bacteria (None) /hpf 09/06/19 09/06/19 09/06/19 Range/Units 13:00 17:05 20:17 Sodium (137-145) mmol/L Potassium (3.5-5.1) mmol/L Carbon Dioxide (22-30) mmol/L BUN (7-17) mg/dL Creatinine (0.52-1.04) mg/dL Glucose (74-99) mg/dL POC Glucose (mg/dL) 148 H 175 H (75-99) mg/dL Albumin (3.5-5.0) g/dL Urine Appearance Cloudy H (Clear) Urine Glucose (UA) 4+ H (Negative) Ur Leukocyte Esterase Large H (Negative) Urine WBC 135 H (0-5) /hpf Urine Bacteria Rare H (None) /hpf Assessment and Plan Assessment: Symptomatic bradycardia, - Status post atropine and glucagon - hyperkalemia treated -Telemetry -Echocardiogram ordered -Cardiology recs appreicated -Hold metoprolol, and Catapres Acute kidney injury with hyperkalemia and non-anion gap metabolic acidosis, improvign -Unknown baseline creatinine -Hold lisinopril, Aldactone, Invokana,, meloxicam -Gentle IV fluids -Repeat creatinine in a.m. - Renal US without hydro - nephro recs appreciated Congestive heart failure, unknown type -Appears to be dehydrated at this point in time -Hold diuretics, lisinopril, and metoprolol -careful fluid management -Echo pending Diabetes mellitus type 2 -Hold invokana, hold levemir - A1C pending - SSI - Follow BS Hyponatremia, improving -Suspect secondary dehydration -Follow sodium levels -Hold diuretics Hypotension likely secondary to medication use -Hold all antihypertensive medications -IV fluids -Follow blood pressures Morbid obesity -BMI 33.2 -Structured outpatient weight loss Fibromyalgia -[place] as needed -Hold Mobic -Supportive care - resume gabapentin at lower dose Parkinson's disease -Fall precautions -Carbidopa- levodopa Chronic: Dyslipidemia GERD Neuropathy Urinary frequency DVT prophylaxis: Heparin Discussed with: Patient, nursing, Anticipated discharge date: 1-[address]: home A total of 35 minutes was spent on the care of this complex patient more than 50% of the time was spent in counseling and care coordination.
[2019-09-07 02:51] LABS: Glucose,Whole Blood 169 mg/dL (75-99)
[2019-09-07] MEDS: SODIUM CHLORIDE 0.9% 1,000 ML IV SCH ×2 (05:38→20:16)
[2019-09-07 06:06] LABS: Glucose,Whole Blood 191 mg/dL (75-99)
[2019-09-07 06:29] LABS: Anisocytosis Slight; HCT 37.7 % (34.0-46.0); HGB 11.6 gm/dL (11.4-16.0); Hypochromasia Moderate; MCH 26.1 pg (25.0-35.0); MCHC 30.9 g/dL (31.0-37.0); MCV 84.5 fL (80.0-100.0); Platelet Count 253 k/uL (150-450); RBC 4.46 m/uL (3.80-5.40); RDW 16.2 % (11.5-15.5); WBC 7.4 k/uL (3.8-10.6)
[2019-09-07] MEDS: INSULIN ASPART (NovoLOG) 100 UNIT/ML VIAL SQ SCH ×3 (06:34→17:14)
[2019-09-07 06:42] LABS: Calcium 9.4 mg/dL (8.4-10.2); Potassium 5.1 mmol/L (3.5-5.1)
--- NOTE | 2019-09-07 09:20 | P.PN ---
Subjective Progress Note Date: 09/07/19 Patient is a 78-year-old female with a past medical history of high blood pressure, diabetes, hyperlipidemia, fibromyalgia, neuropathy, and parkinsonian syndrome who initially was brought into the ER via EMS secondary to low blood pressures. Patient was also found to be significantly bradycardic, she was noted to have hyperkalemia with a potassium level of 7.8. Her main concerns and symptoms were that of fatigue and lightheadedness which she had been experiencing for the last few days. She was also significantly more tired than usual. She was seen in consultation yesterday by Dr. Abdalla. The NITO inhibitor as well as the Aldactone were placed on hold because of the hyperkalemia, patient also received a treatment with insulin, calcium, and dextrose for her hyperkalemia. Blood pressure 170/80 with a heart rate of 50-60 this morning, 96% on room air. White blood cell count 7.4, hemoglobin 11.6, platelet count 253. Sodium 136, potassium 5.1, BUN 35, creatinine 1.2. We will add some Norvasc to the patient's medication regime for her hypertension. Her potassium level is some much improved this morning as is her bradycardia. Patient in general states she doesn't feel very well today, lungs are clear, abdomen soft, no edema. She does complain of a sore back for which the patient states she can't lie completely flat. Objective - Vital Signs Vital signs: Vital Signs Temp 97.7 F 09/07/19 04:00 Pulse 62 09/07/19 04:00 Resp 20 09/07/19 04:00 BP 170/84 09/07/19 04:00 Pulse Ox 96 09/07/19 04:00 Intake & Output 09/06/19 09/07/19 09/07/19 18:59 06:59 18:59 Intake Total 120 Output Total 400 1250 400 Balance -280 -1250 -400 Weight 76.4 kg Intake: Oral 120 Output: Urine 400 1250 400 Other: Voiding Method Bedside Commode # Voids 1 1 1 # Bowel Movements 1 - Exam PHYSICAL EXAMINATION: GENERAL: 78-year-old female in no acute distress at the time of my examination HEENT: Head is atraumatic, normocephalic. Pupils equal, round. Sclera anicteric. Conjunctiva are clear. Mucous membranes of the mouth are moist. Neck is supple. There is no elevated jugular venous pressure. No carotid bruit is heard. HEART EXAMINATION: Heart S1 and S2 with soft systolic murmur is heard CHEST EXAMINATION: Lungs are clear with mild diminished air entry to the bases bilaterally ABDOMEN: Soft, nontender. Bowel sounds are heard. No organomegaly noted. EXTREMITIES: 2+ peripheral pulses with no evidence of peripheral edema and no calf tenderness noted. NEUROLOGIC patient is awake, alert and oriented 3 . . - Labs CBC & Chem 7: 09/07/19 05:35 09/07/19 05:35 Labs: Abnormal Lab Results - Last 24 Hours (Table) 09/06/19 09/06/19 09/06/19 Range/Units 11:28 13:00 17:05 MCHC (31.0-37.0) g/dL RDW (11.5-15.5) % Sodium (137-145) mmol/L Carbon Dioxide (22-30) mmol/L BUN (7-17) mg/dL Creatinine (0.52-1.04) mg/dL Glucose (74-99) mg/dL POC Glucose (mg/dL) 255 H 148 H (75-99) mg/dL Urine Appearance Cloudy H (Clear) Urine Glucose (UA) 4+ H (Negative) Ur Leukocyte Esterase Large H (Negative) Urine WBC 135 H (0-5) /hpf Urine Bacteria Rare H (None) /hpf 09/06/19 09/07/19 09/07/19 Range/Units 20:17 02:49 05:35 MCHC 30.9 L (31.0-37.0) g/dL RDW 16.2 H (11.5-15.5) % Sodium (137-145) mmol/L Carbon Dioxide (22-30) mmol/L BUN (7-17) mg/dL Creatinine (0.52-1.04) mg/dL Glucose (74-99) mg/dL POC Glucose (mg/dL) 175 H 169 H (75-99) mg/dL Urine Appearance (Clear) Urine Glucose (UA) (Negative) Ur Leukocyte Esterase (Negative) Urine WBC (0-5) /hpf Urine Bacteria (None) /hpf 09/07/19 09/07/19 Range/Units 05:35 06:04 MCHC (31.0-37.0) g/dL RDW (11.5-15.5) % Sodium 136 L (137-145) mmol/L Carbon Dioxide 21 L (22-30) mmol/L BUN 35 H (7-17) mg/dL Creatinine 1.23 H (0.52-1.04) mg/dL Glucose 178 H (74-99) mg/dL POC Glucose (mg/dL) 191 H (75-99) mg/dL Urine Appearance (Clear) Urine Glucose (UA) (Negative) Ur Leukocyte Esterase (Negative) Urine WBC (0-5) /hpf Urine Bacteria (None) /hpf Assessment and Plan Plan: Assessment and plan #1 severe sinus bradycardia, likely secondary to hyperkalemia, lisinopril and Aldactone discontinued. Patient was on beta blockers, and multiple other antihypertensive medications including Catapres, hydralazine, Lasix, and Imdur. #2 hypotensive on admission, this morning's blood pressure 170 systolic, we will start the patient on Norvasc #3 diabetes #4 hypertension history #5 hyperlipidemia #6 Parkinson's #7 obesity #8 fibromyalgia #9 GERD #10 acute on chronic renal insufficiency, could be secondary to dehydration on presentation Plan We will continue with hypertensive management at this time, we will add Norvasc 5 mg daily to the patient's medication regime to optimize blood pressure control, if necessary we can go up on the Norvasc to 10 mg daily. Review the echocardiogram with Doppler study. DNP note has been reviewed, I agree with a documented findings and plan of care. Patient was seen and examined.
--- NOTE | 2019-09-07 09:30 | ECHOF ---
Referral Reason:bradycardia MEASUREMENTS -------- HEIGHT: 154.9 cm WEIGHT: 76.2 kg BP: 170/84 RVIDd: 3.7 cm (< 3.3) IVSd: 1.5 cm (0.6 - 1.1) LVIDd: 2.3 cm (3.9 - 5.3) LVPWd: 1.5 cm (0.6 - 1.1) IVSs: 1.9 cm LVIDs: 1.8 cm LVPWs: 1.7 cm Ao Diam: 3.3 cm (2.0 - 3.7) AV Cusp: 0.9 cm (1.5 - 2.6) LA Diam: 4.0 cm (2.7 - 3.8) MV E Bhanu: 0.82 m/s MV DecT: 239 ms MV A Bhanu: 0.85 m/s MV E/A Ratio: 0.97 AV maxP.24 mmHg AV meanP.31 mmHg RAP: 5.00 mmHg RVSP: 20.98 mmHg FINDINGS -------- Sinus rhythm. This was a technically difficult study with suboptimal views. Pt. not compliant. The left ventricular size is normal. There is moderate concentric left ventricular hypertrophy. O verall left ventricular systolic function is low-normal with, an EF between 50 - 55 %. The right ventricle is mildly enlarged. The left atrium is mildly dilated. The right atrial size is normal. Lumason used Aortic valve is trileaflet and is moderately thickened. There is moderate aortic stenosis present. Peak/mean gradient across the Aortic Valve is 33.24mmHg / 21.31mmHg. The mitral valve is normal. Mild mitral regurgitation is present. The tricuspid valve appears structurally normal. Mild tricuspid regurgitation present. Right vent ricular systolic pressure is normal at < 35 mmHg. The pulmonic valve was not well visualized. The aortic root size is normal. IVC Not well visulized. There is no pericardial effusion. CONCLUSIONS -------- 1. Sinus rhythm. 2. This was a technically difficult study with suboptimal views. 3. Pt. not compliant. 4. The left ventricular size is normal. 5. There is moderate concentric left ventricular hypertrophy. 6. Overall left ventricular systolic function is low-normal with, an EF between 50 - 55 %. 7. The right ventricle is mildly enlarged. 8. The left atrium is mildly dilated. 9. The right atrial size is normal. 10. Lumason used 11. Aortic valve is trileaflet and is moderately thickened. 12. There is moderate aortic stenosis present. 13. Peak/mean gradient across the Aortic Valve is 33.24mmHg / 21.31mmHg. 14. The mitral valve is normal. 15. Mild mitral regurgitation is present. 16. The tricuspid valve appears structurally normal. 17. Mild tricuspid regurgitation present. 18. Right ventricular systolic pressure is normal at < 35 mmHg. 19. The pulmonic valve was not well visualized. 20. The aortic root size is normal. 21. IVC Not well visulized. 22. There is no pericardial effusion. IS PROJECT MANAGER: Yadira Powell RDCS
[2019-09-07] MEDS: ATORVASTATIN 10 MG TAB PO SCH (09:38)
[2019-09-07] MEDS: CARBIDOPA-LEVODOPA 25-100 MG 1 EACH TAB PO SCH ×3 (09:38→20:15)
[2019-09-07] MEDS: GABAPENTIN 100 MG CAP PO SCH ×2 (09:38→20:15)
[2019-09-07] MEDS: HEPARIN SODIUM,PORCINE 5,000 UNIT/ML 1 ML VIAL SQ SCH ×3 (09:39→20:15)
[2019-09-07] MEDS: PANTOPRAZOLE 40 MG TABLET PO SCH (09:39)
[2019-09-07] MEDS: amLODIPine 5 MG TAB PO SCH (09:39)
--- NOTE | 2019-09-07 10:21 | P.PN ---
Subjective Patient is seen in follow for acute kidney injury. Renal function is better. Potassium level is also better. Oral intake is fair. No vomiting or diarrhea. Vital signs are stable. General: The patient appeared well nourished and normally developed. HEENT: Head exam is unremarkable. Neck is without jugular venous distension. LUNGS: Breath sounds decreased. HEART: Rate and Rhythm are regular. ABDOMEN: Nontender, nondistended. EXTREMITITES: No clubbing, cyanosis, or edema. Objective - Vital Signs Vital signs: Vital Signs Temp 98.3 F 09/07/19 09:21 Pulse 50 L 09/07/19 09:21 Resp 18 09/07/19 09:21 BP 159/67 09/07/19 09:21 Pulse Ox 97 09/07/19 09:21 Intake & Output 09/06/19 09/07/19 09/07/19 18:59 06:59 18:59 Intake Total 120 Output Total 400 1250 400 Balance -280 -1250 -400 Weight 76.4 kg Intake: Oral 120 Output: Urine 400 1250 400 Other: Voiding Method Bedside Commode Bedside Commode # Voids 1 1 1 # Bowel Movements 1 - Labs CBC & Chem 7: 09/07/19 05:35 09/07/19 05:35 Labs: Abnormal Lab Results - Last 24 Hours (Table) 09/06/19 09/06/19 09/06/19 Range/Units 11:28 13:00 17:05 MCHC (31.0-37.0) g/dL RDW (11.5-15.5) % Sodium (137-145) mmol/L Carbon Dioxide (22-30) mmol/L BUN (7-17) mg/dL Creatinine (0.52-1.04) mg/dL Glucose (74-99) mg/dL POC Glucose (mg/dL) 255 H 148 H (75-99) mg/dL Urine Appearance Cloudy H (Clear) Urine Glucose (UA) 4+ H (Negative) Ur Leukocyte Esterase Large H (Negative) Urine WBC 135 H (0-5) /hpf Urine Bacteria Rare H (None) /hpf 09/06/19 09/07/19 09/07/19 Range/Units 20:17 02:49 05:35 MCHC 30.9 L (31.0-37.0) g/dL RDW 16.2 H (11.5-15.5) % Sodium (137-145) mmol/L Carbon Dioxide (22-30) mmol/L BUN (7-17) mg/dL Creatinine (0.52-1.04) mg/dL Glucose (74-99) mg/dL POC Glucose (mg/dL) 175 H 169 H (75-99) mg/dL Urine Appearance (Clear) Urine Glucose (UA) (Negative) Ur Leukocyte Esterase (Negative) Urine WBC (0-5) /hpf Urine Bacteria (None) /hpf 09/07/19 09/07/19 Range/Units 05:35 06:04 MCHC (31.0-37.0) g/dL RDW (11.5-15.5) % Sodium 136 L (137-145) mmol/L Carbon Dioxide 21 L (22-30) mmol/L BUN 35 H (7-17) mg/dL Creatinine 1.23 H (0.52-1.04) mg/dL Glucose 178 H (74-99) mg/dL POC Glucose (mg/dL) 191 H (75-99) mg/dL Urine Appearance (Clear) Urine Glucose (UA) (Negative) Ur Leukocyte Esterase (Negative) Urine WBC (0-5) /hpf Urine Bacteria (None) /hpf Assessment and Plan Plan: Assessment: 1. Acute kidney injury mostly prerenal secondary to nonsteroidals and hypotension. Improving. Creatinine 1.23 today. No proteinuria on UA. 2. Hyperkalemia secondary to acute kidney injury, nonsteroidals and use of NITO inhibitor/Aldactone. Improved. 3. Metabolic acidosis secondary to acute kidney injury and IV fluids. 4. Benign hypertension. 5. Rule out chronic kidney disease. Unknown baseline renal function. Plan: Continue to hold NITO inhibitor and Aldactone. Amlodipine added this morning. Avoid nephrotoxins, including nonsteroidals. Decrease IV fluids to 50 mL an hour.
[2019-09-07 11:37] LABS: Glucose,Whole Blood 200 mg/dL (75-99)
[2019-09-07 12:42] LABS: Hemoglobin A1C 11.8 % (4.0-6.0)
[2019-09-07 13:48] VITALS: BMI 32.8
[2019-09-07] MEDS: ISOSORBIDE MONONITRATE ER 30 MG TAB.ER.24H PO SCH (14:39)
[2019-09-07] MEDS: BENZOCAINE/MENTHOL LOZENG 1 EACH LOZENGE MUCOUS MEM PRN ×2 (14:41→22:04)
[2019-09-07] MEDS: hydrALAZINE HCL 50 MG TAB PO SCH ×2 (16:07→20:15)
[2019-09-07 16:43] LABS: Glucose,Whole Blood 170 mg/dL (75-99)
[2019-09-07] MEDS: ACETAMINOPHEN TAB 325 MG TAB PO PRN ×2 (17:52→22:03)
--- NOTE | 2019-09-07 18:09 | P.PN ---
Subjective Progress Note Date: 09/07/19 (delayed charting seen at 1350) Principal diagnosis: low blood pressure Patient is a 78-year-old female with a past medical history of high blood pressure, fibromyalgia, neuropathy, and parkinsonian syndrome who initially was brought into the ER via EMS secondary to low blood pressures. She received 1 dose of atropine via EMS, 2 doses of atropine in the ER secondary to bradycardia with hypotension, and a dose of glucagon. Initial laboratory analysis showed an elevated potassium level at 7.3 and acute kidney injury. She received Kayexalate, insulin, glucose, bicarb, and potassium. Repeat labs showed a potassium of 5.7. Her hypotension improved and she was admitted for further monitoring. She continued to have some hyperkalemia and was given a dose of lasix and more bicarb and fluids. Her HR remained above 50. She was noted to have significant weakness, which appears to be her baseline. Her Gabapentin was restarted at a lower dose after her mentation improved. Seen by cardio who felt bradycardia likely due to hyperkalemia. Her BP started on elevated on 09/06 and some of her medications were restarted. Patient seen and examined at bedside. She complains of a headache and not feeling well, no chest pain, SOB, or nasuea. Feeling tired. Objective - Vital Signs Vital signs: Vital Signs Temp 98.8 F 09/07/19 16:00 Pulse 67 09/07/19 16:00 Resp 20 09/07/19 16:00 BP 136/94 09/07/19 16:00 Pulse Ox 98 09/07/19 16:00 Intake & Output 09/06/19 09/07/19 09/07/19 18:59 06:59 18:59 Intake Total 120 Output Total 400 1250 1300 Balance -280 -1250 -1300 Weight 76.4 kg 76.4 kg Intake: Oral 120 Output: Urine 400 1250 1300 Other: Voiding Method Bedside Commode Bedside Commode # Voids 1 1 1 # Bowel Movements 1 - Exam General: Ill-appearing, no distress, appears at stated age, obese Derm: warm, dry Head: atraumatic, normocephalic, symmetric Eyes: EOMI, no lid lag, anicteric sclera Mouth: no lip lesion, mucus membranes moist Cardiovascular: S1S2 reg, no murmur, positive posterior tibial pulse bilateral, Lungs: Decreased breath sounds bilateral, no rhonchi, no rales , no accessory muscle use Abdominal: soft, nontender to palpation, no guarding, no appreciable organomega ly Ext: no gross muscle atrophy, 1+ edema, no contractures Neuro: CN II-XI grossly intact, no focal neuro deficits, lip smaking Psych: Alert, oriented, flat - Labs CBC & Chem 7: 09/07/19 05:35 09/07/19 05:35 Labs: Abnormal Lab Results - Last 24 Hours (Table) 09/06/19 09/06/19 09/07/19 Range/Units 05:35 20:17 02:49 MCHC (31.0-37.0) g/dL RDW (11.5-15.5) % Sodium (137-145) mmol/L Carbon Dioxide (22-30) mmol/L BUN (7-17) mg/dL Creatinine (0.52-1.04) mg/dL Glucose (74-99) mg/dL POC Glucose (mg/dL) 175 H 169 H (75-99) mg/dL Hemoglobin A1c 11.8 H (4.0-6.0) % 09/07/19 09/07/19 09/07/19 Range/Units 05:35 05:35 06:04 MCHC 30.9 L (31.0-37.0) g/dL RDW 16.2 H (11.5-15.5) % Sodium 136 L (137-145) mmol/L Carbon Dioxide 21 L (22-30) mmol/L BUN 35 H (7-17) mg/dL Creatinine 1.23 H (0.52-1.04) mg/dL Glucose 178 H (74-99) mg/dL POC Glucose (mg/dL) 191 H (75-99) mg/dL Hemoglobin A1c (4.0-6.0) % 09/07/19 09/07/19 Range/Units 11:37 16:37 MCHC (31.0-37.0) g/dL RDW (11.5-15.5) % Sodium (137-145) mmol/L Carbon Dioxide (22-30) mmol/L BUN (7-17) mg/dL Creatinine (0.52-1.04) mg/dL Glucose (74-99) mg/dL POC Glucose (mg/dL) 200 H 170 H (75-99) mg/dL Hemoglobin A1c (4.0-6.0) % Assessment and Plan Assessment: Symptomatic bradycardia associated with severe hyperkalemia - Status post atropine and glucagon - hyperkalemia treated -Telemetry -Echocardiogram with preserved ejection fraction -Cardiology recs appreicated -Hold metoprolol, Catapres Acute kidney injury with hyperkalemia and non-anion gap metabolic acidosis, improving -Unknown baseline creatinine -Hold lisinopril, Aldactone, Invokana, meloxicam, lasix -Gentle IV fluids -Repeat creatinine in a.m. - Renal US without hydro - nephro recs appreciated: F/U in 2 weeks, no NSAIDS on discharge Congestive heart failure, diastolic with EF 50-55% -IVF decreased -Hold diuretics, lisinopril, and metoprolol -careful fluid management Diabetes mellitus type 2 -Hold invokana - resume levemir - A1C 11.8 - SSI - Follow BS HTN, ugency - started on norvasc - resume hydralaize, imdur and follow BP Morbid obesity -BMI 33.2 -Structured outpatient weight loss Fibromyalgia -[place] as needed -Hold Mobic -Supportive care - gabapentin at lower dose Parkinson's disease -Fall precautions -Carbidopa- levodopa Chronic: Dyslipidemia GERD Neuropathy Urinary frequency Medication induced hypotension resolved DVT prophylaxis: Heparin Discussed with: Patient, nursing, Anticipated discharge date: 1-[address]: home with home health, patient and family don't wand SNF A total of 35 minutes was spent on the care of this complex patient more than 50% of the time was spent in counseling and care coordination.
[2019-09-07 20:17] LABS: Glucose,Whole Blood 179 mg/dL (75-99)
[2019-09-07] MEDS: INSULIN DETEMIR (LEVEMIR) 100 UNIT/ML SYR SQ SCH (20:24)
[2019-09-07] MEDS: MELATONIN 3 MG TABLET PO PRN (22:04)
[2019-09-07] MEDS: HYDROcodone/APAP 5-325MG 1 EACH TAB PO PRN (22:39)
[2019-09-08] MEDS ORDERED: cloNIDine HCL 0.2 MG TAB PO STA (04:39)
[2019-09-08 06:03] LABS: Glucose,Whole Blood 133 mg/dL (75-99)
[2019-09-08] MEDS: INSULIN ASPART (NovoLOG) 100 UNIT/ML VIAL SQ SCH ×3 (06:03→17:30)
[2019-09-08 06:25] LABS: Calcium 9.2 mg/dL (8.4-10.2); Magnesium 1.8 mg/dL (1.6-2.3); Potassium 4.6 mmol/L (3.5-5.1)
--- NOTE | 2019-09-08 08:47 | P.PN ---
Subjective Patient is seen in follow for acute kidney injury. Renal function is better. Potassium level is also better. Oral intake is fair. No vomiting or diarrhea. Denies chest pain or shortness of breath. Vital signs are stable. General: The patient appeared well nourished and normally developed. HEENT: Head exam is unremarkable. Neck is without jugular venous distension. LUNGS: Breath sounds decreased. HEART: Rate and Rhythm are regular. ABDOMEN: Nontender, nondistended. EXTREMITITES: No clubbing, cyanosis, or edema. Objective - Vital Signs Vital signs: Vital Signs Temp 97.8 F 09/08/19 07:56 Pulse 64 09/08/19 07:56 Resp 24 09/08/19 07:56 BP 159/71 09/08/19 07:56 Pulse Ox 96 09/08/19 07:56 Intake & Output 09/07/19 09/08/19 09/08/19 18:59 06:59 18:59 Intake Total 400 Output Total 2100 650 Balance -1700 -650 Weight 76.4 kg 64.5 kg Intake: Intake, IV Titration 400 Amount Sodium Chloride 0.9% 1, 400 000 ml @ 50 mls/hr IV . Q20H [facility] Rx#:[id number] Output: Urine 2100 650 Other: Voiding Method Bedside Commode Bedside Commode # Voids 6 1 # Bowel Movements 1 - Labs CBC & Chem 7: 09/07/19 05:35 09/08/19 05:24 Labs: Abnormal Lab Results - Last 24 Hours (Table) 09/06/19 09/07/19 09/07/19 Range/Units 05:35 11:37 16:37 Chloride (98-107) mmol/L Carbon Dioxide (22-30) mmol/L BUN (7-17) mg/dL Creatinine (0.52-1.04) mg/dL Glucose (74-99) mg/dL POC Glucose (mg/dL) 200 H 170 H (75-99) mg/dL Hemoglobin A1c 11.8 H (4.0-6.0) % 09/07/19 09/08/19 09/08/19 Range/Units 20:16 05:24 06:01 Chloride 110 H (98-107) mmol/L Carbon Dioxide 20 L (22-30) mmol/L BUN 21 H (7-17) mg/dL Creatinine 1.19 H (0.52-1.04) mg/dL Glucose 127 H (74-99) mg/dL POC Glucose (mg/dL) 179 H 133 H (75-99) mg/dL Hemoglobin A1c (4.0-6.0) % Assessment and Plan Plan: Assessment: 1. Acute kidney injury mostly prerenal secondary to nonsteroidals and hypoten nikhil. Improving. Creatinine 1.19 today. No proteinuria on UA. No evidence of hydronephrosis noted on kidney ultrasound. Left kidney small in size. 2. Hyperkalemia secondary to acute kidney injury, nonsteroidals and use of NITO inhibitor/Aldactone. Improved. 3. Metabolic acidosis secondary to acute kidney injury and IV fluids. 4. Benign hypertension. 5. Rule out chronic kidney disease. Unknown baseline renal function. Plan: Continue to hold NITO inhibitor and Aldactone. Maintain current antihypertensives. Avoid nephrotoxins, including nonsteroidals. Encouraged oral intake.
[2019-09-08] MEDS: HEPARIN SODIUM,PORCINE 5,000 UNIT/ML 1 ML VIAL SQ SCH ×3 (09:57→19:38)
[2019-09-08] MEDS: amLODIPine 5 MG TAB PO SCH (09:57)
[2019-09-08] MEDS: PANTOPRAZOLE 40 MG TABLET PO SCH (09:57)
[2019-09-08] MEDS: hydrALAZINE HCL 50 MG TAB PO SCH ×3 (09:57→19:37)
[2019-09-08] MEDS: GABAPENTIN 100 MG CAP PO SCH ×2 (09:57→19:37)
[2019-09-08] MEDS: ATORVASTATIN 10 MG TAB PO SCH (09:57)
[2019-09-08] MEDS: CARBIDOPA-LEVODOPA 25-100 MG 1 EACH TAB PO SCH ×3 (09:57→19:37)
[2019-09-08] MEDS: ISOSORBIDE MONONITRATE ER 30 MG TAB.ER.24H PO SCH (09:57)
[2019-09-08] MEDS ORDERED: amLODIPine 5 MG TAB PO STA (10:56)
[2019-09-08 11:38] LABS: Glucose,Whole Blood 183 mg/dL (75-99)
[2019-09-08] MEDS: HYDROcodone/APAP 5-325MG 1 EACH TAB PO PRN ×3 (11:48→23:33)
[2019-09-08] MEDS ORDERED: MORPHINE SULFATE 4 MG/ML SYRINGE IV ONE (12:29)
--- NOTE | 2019-09-08 13:10 | XR ---
EXAMINATION TYPE: XR shoulder complete LT DATE OF EXAM: 09/08/2019 COMPARISON: NONE HISTORY: Pain TECHNIQUE: Shoulder examined in 3 views FINDINGS: The humeral head articulates with the glenoid. Degenerative spurring is noted within the humeral head . There is narrowing of the glenohumeral joint space. Small amount of inferior glenoid spurring appea rs to be present. The acromio-clavicular junction is normal. No acute fractures or dislocations are evident. A follow up study can be performed 7-10 days from acute trauma for continued pain. IMPRESSION: 1. Osteoarthritic degenerative change left shoulder.
--- NOTE | 2019-09-08 14:06 | P.PN ---
Subjective Progress Note Date: 09/08/19 78-year-old female admitted for hypotension, bradycardia, hyperkalemia with renal failure. She has been improving steadily over the last few days, her hyperkalemia has resolved, kidney function continues to improve but her baseline renal function is unknown. All her antihypertensives were discontinued on admission, she became hypotensive yesterday with systolic pressures greater than 180, she was started on Norvasc which she seems to be tolerating well. She denies any chest pain, no shortness of breath, no headache, lightheadedness, she is tired and sleepy this morning but is awake and cooperative. Overall she continues to improve and has no other symptoms or complaints Objective - Vital Signs Vital signs: Vital Signs Temp 98.2 F 09/08/19 11:00 Pulse 74 09/08/19 11:00 Resp 22 09/08/19 11:00 BP 141/67 09/08/19 11:00 Pulse Ox 98 09/08/19 11:00 Intake & Output 09/07/19 09/08/19 09/08/19 18:59 06:59 18:59 Intake Total 400 250 Output Total 2100 650 Balance -1700 -650 250 Weight 76.4 kg 64.5 kg Intake: Intake, IV Titration 400 Amount Sodium Chloride 0.9% 1, 400 000 ml @ 50 mls/hr IV . Q20H [facility] Rx#:[id number] Oral 250 Output: Urine 2100 650 Other: Voiding Method Bedside Commode Bedside Commode # Voids 6 1 2 # Bowel Movements 1 2 - Exam General: Ill-appearing, no distress Head: atraumatic, normocephalic, symmetric Eyes: EOMI, anicteric sclera Cardiovascular: S1S2 reg, no murmur Lungs: Decreased breath sounds bilateral, no rhonchi, no rales , no accessory muscle use Abdominal: soft, nontender to palpation, no guarding Ext: no gross muscle atrophy, 1+ edema b/l Neuro: CN II-XI grossly intact, no focal neuro deficits, - Labs CBC & Chem 7: 09/07/19 05:35 09/08/19 05:24 Labs: Abnormal Lab Results - Last 24 Hours (Table) 09/07/19 09/07/19 09/08/19 Range/Units 16:37 20:16 05:24 Chloride 110 H (98-107) mmol/L Carbon Dioxide 20 L (22-30) mmol/L BUN 21 H (7-17) mg/dL Creatinine 1.19 H (0.52-1.04) mg/dL Glucose 127 H (74-99) mg/dL POC Glucose (mg/dL) 170 H 179 H (75-99) mg/dL 09/08/19 09/08/19 Range/Units 06:01 11:36 Chloride (98-107) mmol/L Carbon Dioxide (22-30) mmol/L BUN (7-17) mg/dL Creatinine (0.52-1.04) mg/dL Glucose (74-99) mg/dL POC Glucose (mg/dL) 133 H 183 H (75-99) mg/dL Assessment and Plan Assessment: #Symptomatic bradycardia and hypotension -In the setting of hyperkalemia and antihypertensives -Resolving -Metoprolol and Catapres on hold, patient became hypotensive yesterday however and was started on Norvasc which she seems to be tolerating well -Appreciate further input from cardiology #Acute kidney injury with hyperkalemia -Creatinine continues to improve, baseline is unknown -Hyperkalemia has resolved -Avoid nephrotoxins -Follow with nephrology in 2 weeks # History of congestive heart failure with preserved ejection fraction -Currently compensated -Lasix discontinued on admission due to hypotension -We'll restart at a lower dose # Diabetes mellitus type 2 -Continue Levemir, plus insulin sliding scale # Parkinson's disease -Continue carbidopa-levodopa Anticipated discharge tomorrow with home care, patient and family refusing SNF
[2019-09-08 17:24] LABS: Glucose,Whole Blood 171 mg/dL (75-99)
[2019-09-08] MEDS: MELATONIN 3 MG TABLET PO PRN (19:37)
[2019-09-08] MEDS: ACETAMINOPHEN TAB 325 MG TAB PO PRN (19:37)
[2019-09-08] MEDS: SODIUM CHLORIDE 0.9% 1,000 ML IV SCH (20:34)
[2019-09-08] MEDS: INSULIN DETEMIR (LEVEMIR) 100 UNIT/ML SYR SQ SCH (20:34)
[2019-09-08] MEDS: ALPRAZolam 0.5 MG TAB PO PRN (21:20)
[2019-09-08 21:31] VITALS: RESP 20
[2019-09-09 02:41] LABS: Glucose,Whole Blood 160 mg/dL (75-99)
[2019-09-09 05:51] VITALS: BP 156/90; TEMP 98.5
[2019-09-09 06:58] LABS: Glucose,Whole Blood 166 mg/dL (75-99)
--- NOTE | 2019-09-09 07:54 | P.PN ---
Subjective Patient is seen in follow for acute kidney injury. Renal function is better. Potassium level was normal yesterday. Oral intake is fair. Maintained on normal saline at 50 mL an hour. Currently sleeping. Sitter at bedside. Vital signs are stable. General: The patient appeared well nourished and normally developed. HEENT: Head exam is unremarkable. Neck is without jugular venous distension. LUNGS: Breath sounds decreased. HEART: Rate and Rhythm are regular. ABDOMEN: Nontender, nondistended. EXTREMITITES: No clubbing, cyanosis, or edema. Objective - Vital Signs Vital signs: Vital Signs Temp 98.5 F 09/09/19 05:50 Pulse 86 09/09/19 05:50 Resp 20 09/09/19 05:50 BP 156/90 09/09/19 05:50 Pulse Ox 94 L 09/09/19 05:50 Intake & Output 09/08/19 09/09/19 09/09/19 18:59 06:59 18:59 Intake Total 370 1800 Balance 370 1800 Intake: Intake, IV Titration 600 Amount Sodium Chloride 0.9% 1, 600 000 ml @ 50 mls/hr IV . Q20H [facility] Rx#:[id number] Oral 370 1200 Other: Voiding Method Bedside Commode # Voids 1 2 # Bowel Movements 2 - Labs CBC & Chem 7: 09/07/19 05:35 09/08/19 05:24 Labs: Abnormal Lab Results - Last 24 Hours (Table) 09/08/19 09/08/19 09/09/19 Range/Units 11:36 17:20 02:41 POC Glucose (mg/dL) 183 H 171 H 160 H (75-99) mg/dL 09/09/19 Range/Units 06:57 POC Glucose (mg/dL) 166 H (75-99) mg/dL Assessment and Plan Plan: Assessment: 1. Acute kidney injury mostly prerenal secondary to nonsteroidals and hypotension. Improving. Creatinine 1.19 as of yesterday. No proteinuria on UA. No evidence of hydronephrosis noted on kidney ultrasound. Left kidney small in size. 2. Hyperkalemia secondary to acute kidney injury, nonsteroidals and use of NITO inhibitor/Aldactone. Improved. 3. Metabolic acidosis secondary to acute kidney injury and IV fluids. 4. Benign hypertension. 5. Rule out chronic kidney disease. Unknown baseline renal function. Plan: Continue to hold NITO inhibitor and Aldactone. Maintain current antihypertensives - dose of amlodipine increased. Avoid nephrotoxins, including nonsteroidals. Encouraged oral intake. Hep-Lock IV fluids.
[2019-09-09] MEDS: CARBIDOPA-LEVODOPA 25-100 MG 1 EACH TAB PO SCH (08:38)
[2019-09-09] MEDS: ISOSORBIDE MONONITRATE ER 30 MG TAB.ER.24H PO SCH (08:38)
[2019-09-09] MEDS: hydrALAZINE HCL 50 MG TAB PO SCH (08:38)
[2019-09-09] MEDS: PANTOPRAZOLE 40 MG TABLET PO SCH (08:38)
[2019-09-09] MEDS: GABAPENTIN 100 MG CAP PO SCH (08:39)
[2019-09-09] MEDS: HEPARIN SODIUM,PORCINE 5,000 UNIT/ML 1 ML VIAL SQ SCH (08:39)
[2019-09-09] MEDS: ATORVASTATIN 10 MG TAB PO SCH (08:39)
[2019-09-09] MEDS: INSULIN ASPART (NovoLOG) 100 UNIT/ML VIAL SQ SCH (08:42)
[2019-09-09] MEDS: ALPRAZolam 0.5 MG TAB PO PRN (08:42)
[2019-09-09] MEDS ORDERED: METOPROLOL SUCCINATE (ER) 25 MG TAB.ER.24H PO SCH (09:00)
[2019-09-09] MEDS ORDERED: FUROSEMIDE 20 MG TAB PO SCH (09:00)
[2019-09-09] MEDS: HYDROcodone/APAP 5-325MG 1 EACH TAB PO PRN (09:51)
[2019-09-09 10:54] LABS: Glucose,Whole Blood 150 mg/dL (75-99)
[2019-09-09 11:45] VITALS: PULSE 92
--- NOTE | 2019-09-09 12:39 | P.PN ---
Subjective This is a pleasant 78-year-old female past medical history significant for hypertension, diabetes, dyslipidemia, fibromyalgia, neuropathy and Parkinson's syndrome. She has seen and examined resting comfortably in no acute distress. Her blood pressures continue to be elevated this morning was 207/87 and after medication administration 159/71. Currently maintained on amlodipine 5 mg daily, hydralazine 50 mg 3 times a day, Imdur 30 mg daily and she was given a one-time dose of clonidine 0.2 mg per primary care team this morning. La boratory data reviewed, sodium 138, potassium 4.6, creatinine 1.19 and magnesium 1.8. Bradycardia has improved. Telemetry tracings unremarkable. GENERAL: Well-appearing, well-nourished and in no acute distress. NECK: Supple without JVD or thyromegaly. LUNGS: Breath sounds clear to auscultation bilaterally. Respiration equal and unlabored. No wheezes, rales or rhonchi. HEART: Regular rate and rhythm with pansystolic ejection murmur at the left sternal border with radiation to the apex, no rubs or gallops. S1 and S2 heard. EXTREMITIES: Normal range of motion, no edema. No clubbing or cyanosis. Peripheral pulses intact. ASSESSMENT Profound sinus bradycardia, improved. Avoid beta blockers. Hypertension with hypotension noted on admission Diabetes mellitus Dyslipidemia Parkinson's disease Acute on chronic renal insufficiency Hyperkalemia, improved PLAN Give additional dose of amlodipine 5 mg today and increase daily dose to 10 mg. Hydralazine to be increased as needed for ongoing hypertension. We will continue to follow. Objective - Vital Signs Vital signs: Vital Signs Temp 98.2 F 09/08/19 11:00 Pulse 74 09/08/19 11:00 Resp 22 09/08/19 11:00 BP 141/67 09/08/19 11:00 Pulse Ox 98 09/08/19 11:00 Intake & Output 09/07/19 09/08/19 09/08/19 18:59 06:59 18:59 Intake Total 400 Output Total 2100 650 Balance -1700 -650 Weight 76.4 kg 64.5 kg Intake: Intake, IV Titration 400 Amount Sodium Chloride 0.9% 1, 400 000 ml @ 50 mls/hr IV . Q20H [facility] Rx#:[id number] Output: Urine 2100 650 Other: Voiding Method Bedside Commode Bedside Commode # Voids 6 1 # Bowel Movements 1 - Labs CBC & Chem 7: 09/07/19 05:35 09/08/19 05:24 Labs: Abnormal Lab Results - Last 24 Hours (Table) 09/06/19 09/07/19 09/07/19 Range/Units 05:35 16:37 20:16 Chloride (98-107) mmol/L Carbon Dioxide (22-30) mmol/L BUN (7-17) mg/dL Creatinine (0.52-1.04) mg/dL Glucose (74-99) mg/dL POC Glucose (mg/dL) 170 H 179 H (75-99) mg/dL Hemoglobin A1c 11.8 H (4.0-6.0) % 09/08/19 09/08/19 09/08/19 Range/Units 05:24 06:01 11:36 Chloride 110 H (98-107) mmol/L Carbon Dioxide 20 L (22-30) mmol/L BUN 21 H (7-17) mg/dL Creatinine 1.19 H (0.52-1.04) mg/dL Glucose 127 H (74-99) mg/dL POC Glucose (mg/dL) 133 H 183 H (75-99) mg/dL Hemoglobin A1c (4.0-6.0) %
[2019-09-10] MEDS ORDERED: amLODIPine 10 MG TAB PO SCH (09:00)
--- NOTE | 2019-09-10 17:21 | P.DS ---
Providers Date of admission: 09/05/19 14:21 Attending physician: Lorena Negrete MD Consults: 09/05/19 14:22 Consult Physician Urgent Consulting Provider: Hans Abdalla Consult Reason/Comments: Cardiac, hyperkalemia Do you want consulting provider notified?: Already Contacted 09/05/19 16:43 Consult Physician Routine Consulting Provider: Luly iVlla Consult Reason/Comments: ILA, hyperkalemia Do you want consulting provider notified?: Yes Primary care physician: Teofilo Maharaj - Discharge Diagnosis(es) (1) Acute renal failure (ARF) Status: Acute Priority: High (2) Bradycardia Status: Acute Priority: High (3) Hyperkalemia Status: Acute (4) Hypotension Status: Acute Hospital Course: HPI from admission on 09/05/2019: Patient is a 78-year-old female with a past medical history of high blood pressure, fibromyalgia, neuropathy, and parkinsonian syndrome who initially was brought into the ER via EMS secondary to low blood pressures. She received 1 dose of atropine via EMS, 2 doses of atropine in the ER secondary to bradycardia with hypotension, and a dose of glucagon. Initial laboratory analysis showed an elevated potassium level at 7.3 and acute kidney injury. She received Kayexalate, insulin, glucose, bicarb, and potassium. Repeat labs showed a potassium of 5.7. Her hypotension improved and she was admitted for further monitoring. Hospital course: Her hypotension improved and she was admitted for further monitoring. She continued to have some hyperkalemia and was given a dose of lasix and more bicarb and fluids. Her HR remained above 50. She was noted to have significant weakness, which appears to be her baseline. Her Gabapentin was restarted at a lower dose after her mentation improved. Seen by cardio who felt bradycardia likely due to hyperkalemia. Her BP started on elevated on 09/06 and some of her medications were restarted. Catapress, Metoprolol were held, norvasc was added for BP control and eventually increased to 10 mg daily with good response. Over the following 3 days her renal function had returned to baseline and hyperkalemia had resolved. Metoprolol was restarted as her HR began to increase, the initial bradycardia was more likley due to hyperkalemia than beta gm overdose. she was observed for an additional day to closely monitor her vitals with the medication changes, and had remained stable. She was eventually discharged home in stable condition. Patient Condition at Discharge: Good Plan - Discharge Summary Discharge Rx Participant: Yes New Discharge Prescriptions: New Furosemide [Lasix] 20 mg PO DAILY 30 Days #30 tab Gabapentin [Neurontin] 200 mg PO BID 30 Days #30 cap amLODIPine [Norvasc] 10 mg PO DAILY 30 Days #30 tab Metoprolol Succinate (ER) [Toprol XL] 25 mg PO DAILY 30 Days #30 tab.er.24h Continue Isosorbide Dinitrate 30 mg PO DAILY Magnesium 500 mg PO DAILY Carbidopa-Levodopa 25-100 mg [Sinemet 25-100 mg] 1 tab PO TID Simvastatin [Zocor] 20 mg PO DAILY Sertraline [Zoloft] 50 mg PO DAILY Oxybutynin Chloride 5 mg PO BID Omeprazole 20 mg PO DAILY Insulin Detemir [Levemir Flextouch] See Protocol SQ BID Canagliflozin [Invokana] 100 mg PO DAILY hydrALAZINE HCL 50 mg PO TID Saliva Stimulant Agents Comb.3 [Biotene Moisturizing Mouth] 2 spray MUCOUS MEM Q4H PRN PRN Reason: Dry Mouth Discontinued Metoprolol Succinate [Toprol XL] 50 mg PO DAILY Lisinopril [Zestril] 10 mg PO BID Furosemide [Lasix] 20 mg PO BID Spironolactone 25 mg PO DAILY NIFEdipine [Procardia XL] 60 mg PO DAILY Meloxicam 7.5 mg PO BID PRN PRN Reason: Pain cloNIDine HCL [Catapres] 0.2 mg PO BID Gabapentin [Neurontin] 800 mg PO TID Discharge Medication List Canagliflozin [Invokana] 100 mg PO DAILY 09/05/19 [History] Carbidopa-Levodopa 25-100 mg [Sinemet 25-100 mg] 1 tab PO TID 09/05/19 [History] Insulin Detemir [Levemir Flextouch] See Protocol SQ BID 09/05/19 [History] Isosorbide Dinitrate 30 mg PO DAILY 09/05/19 [History] Magnesium 500 mg PO DAILY 09/05/19 [History] Omeprazole 20 mg PO DAILY 09/05/19 [History] Oxybutynin Chloride 5 mg PO BID 09/05/19 [History] Saliva Stimulant Agents Comb.3 [Biotene Moisturizing Mouth] 2 spray MUCOUS MEM Q4H PRN 09/05/19 [History] Sertraline [Zoloft] 50 mg PO DAILY 09/05/19 [History] Simvastatin [Zocor] 20 mg PO DAILY 09/05/19 [History] hydrALAZINE HCL 50 mg PO TID 09/05/19 [History] Furosemide [Lasix] 20 mg PO DAILY 30 Days #30 tab 09/09/19 [Rx] Gabapentin [Neurontin] 200 mg PO BID 30 Days #30 cap 09/09/19 [Rx] Metoprolol Succinate (ER) [Toprol XL] 25 mg PO DAILY 30 Days #30 tab.er.24h 09/09/19 [Rx] amLODIPine [Norvasc] 10 mg PO DAILY 30 Days #30 tab 09/09/19 [Rx] Follow up Appointment(s)/Referral(s): [facility], [NON-STAFF] - Teofilo Maharaj MD [Primary Care Provider] - 1-2 days (office is closed,patient can call and make own appt.) Patient Instructions/Handouts: Metoprolol (By mouth), Furosemide (By mouth), Gabapentin (By mouth), Amlodipine (By mouth), Hyperkalemia (DC) Discharge Disposition: HOME WITH HOME HEALTH SERVICES
== END 2019-09-09 13:20 | disposition home health service (06) | DRG 683 ==
LOC: EC 12:12 → 3SCARD 14:21 → 5NMEDONC 09-08 20:27
PROVIDERS: ADMIT Family Medicine; ATTEND Family Medicine
DX: N17.9 Acute kidney failure, unspecified (principal); I13.0 Hypertensive heart and chronic kidney disease with heart failure and stage 1 through stage 4 chronic kidney disease, or unspecified chronic kidney disease; I50.32 Chronic diastolic (congestive) heart failure; E87.1 Hypo-osmolality and hyponatremia; E87.2 Acidosis; I95.2 Hypotension due to drugs; E87.5 Hyperkalemia; E11.22 Type 2 diabetes mellitus with diabetic chronic kidney disease; E11.40 Type 2 diabetes mellitus with diabetic neuropathy, unspecified; E66.01 Morbid (severe) obesity due to excess calories; E78.5 Hyperlipidemia, unspecified; E86.1 Hypovolemia; T39.395A Adverse effect of other nonsteroidal anti-inflammatory drugs [NSAID], initial encounter; T46.5X5A Adverse effect of other antihypertensive drugs, initial encounter; G20 Parkinson's disease; Z20.828 Contact with and (suspected) exposure to other viral communicable diseases; E86.0 Dehydration; F32.9 Major depressive disorder, single episode, unspecified; K21.9 Gastro-esophageal reflux disease without esophagitis; Z79.4 Long term (current) use of insulin; I16.0 Hypertensive urgency; M19.90 Unspecified osteoarthritis, unspecified site; M79.7 Fibromyalgia; N18.9 Chronic kidney disease, unspecified; Z68.33 Body mass index [BMI] 33.0-33.9, adult; Z79.1 Long term (current) use of non-steroidal anti-inflammatories (NSAID); Z79.899 Other long term (current) drug therapy; Z90.49 Acquired absence of other specified parts of digestive tract; R51 Headache
CPT/HCPCS: 36415; 71045; 76770; 80048; 80053; 81001; 83036; 83735; 84439; 84443; 84481; 84484; 85025; 85027; 85610; 85730; 87635; 93005; 93306; 94640; 96361; 96374; 96375; 99291